=== PATIENT | female | born 1965 | race Caucasian/White ===

== ENCOUNTER 2017-06-13 23:49 | Emergency (ER) | payer BC, OTHER ==
[2017-06-13 23:56] VITALS: BP 115/55; BMI 25.0
--- NOTE | 2017-06-14 00:19 | DR.GENAD ---
HPI - PCP Primary Care Physician: AUGUSTA COSTA - Complaint/Symptoms Chief Complaint Doctors Comments: Pt. presenting with complain of pain to rt. middle finger. This started after/shile she learninf to "flick" beer caps 4 days ago. Chief Complaint:: " I HURT MY KNUCKLE ZACKARY TRYING TO LEARN HOW TO FLICK A BEER BOTTLE CAP." Self Treatment fo Chief Complaint: MOTRIN - Nurses notes reviewed Nurses Notes Review: Yes - Source History Provided: Patient - Mode of Arrival Mode of Arrival: Ambulatory - Timing Onset of Chief Complaint: 06/09/17 PMH - PMH Past Medical History: No Past Surgical History: Yes Surgical History: , Cholecystectomy, Hysterectomy Past Surgical History Comment: LEFT EYE SURGERY - Family History History of Family Medical Conditions: Yes Family Medical History: Cancer - Social History Does patient currently use any type of tobacco product: No Have you used tobacco products in the last 12 months: No Type of Tobacco Use: None Does any household member use tobacco: No Alcohol Use: Occasionally Do you use any recreational Drugs:: No Lives With: Family Lives Where: Home - infectious screening In the last 2 months have you had wt loss of >10#?: NO Have you had fever, night sweats or hemotysis?: No Have you traveled outside the country in the last 6 months?: No Isolation: Standard ROS - Review of Systems Constitutional: No Symptoms Reported Eyes: No Symptoms Reported ENTM: No Symptoms Reported Respiratoy: No Symptoms Reported Cardiovascular: No Symptoms Reported Gastrointestinal/Abdominal: No Symptoms Reported Genitourinary: No Symptoms Reported Neurological: No Symptoms Reported Musculoskeletal: Right, Hand (pain) Integumentary: No Symptoms Reported Hematologic/Lymphatic: No Symptoms Reported Endocrine: No Symptoms Reported Psychiatric: No Symptoms Reported All Other Systems: Reviewed and Negative PE - Vital Signs Vitals: Temperature 98.3 F Pulse Rate 72 Respiratory Rate 20 Blood Pressure 115/55 O2 Sat by Pulse Oximetry 98 - General Limitations: No Limitations General Appearance: Alert, In No Apparent Distress - Head Head Exam: Normal Inspection - Eyes Eye exam: Normal Appearance - ENT ENT Exam: Normal Exam - Neck Neck Exam: Normal Inspection - Chest Chest Inspection: Normal Inspection - Respiratory Respiratory Exam: Normal Lung Sounds Bilat - Cardiovascular Cardiovascular Exam: Regular Rate, Normal Rhythm - Abdominal Exam Abdominal Exam: Normal Inspection, Normal Bowel Sounds, Soft - Extremities Extremities Exam: Tenderness (at distal 4th ot the right 3rd carpal bone with prominence of of the 3rd MCP joint. ) - Back Back Exam: Normal Inspection - Neurologic Neurological Exam: Alert, Oriented X3 - Psychiatric Psychiatric Exam: Normal Affect, Normal Mood - Skin Skin Exam: Warm, Dry, Intact, Normal Color ROR - XRAY XRAY Interpreted by: Self (x-ray rt. hand: No fracture or dislocation) - Diagnosis Discharge Problem: Sprain of finger of right hand - Discharge Plan Disposition: 01 HOME, SELF-CARE Condition: Stable - Follow ups/Referrals Follow ups/Referrals: ESAU COSTA [Primary Care Provider] - 3 days - Instructions
--- NOTE | 2017-06-14 01:22 | RAD ---
Right hand, three views. Indication: Hand pain, swelling of the 3rd digit. Findings: There is suggestion of mild soft tissue swelling along the dorsum of the MCP joints. No acu te cortical disruption or malalignment identified. Impression: No acute skeletal injury. Soft tissue swelling overlying the MCP joints. Reported By:
== END 2017-06-14 01:24 | disposition home or self-care (01) ==
LOC: ER 23:49
DX: S63.612A Unspecified sprain of right middle finger, initial encounter (principal); Y33.XXXA Other specified events, undetermined intent, initial encounter; Y92.9 Unspecified place or not applicable
CPT/HCPCS: 73130; 99282